=== PATIENT | female | born 1965 | race African-American/Black ===

== ENCOUNTER 2021-05-20 10:33 | Emergency (ER) | payer OTHER, SELFPAY ==
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
--- NOTE | ~2021-05-20 | XR_ITS ---
EXAMINATION: XR shoulder LT min 2V DATE: 05/20/2021 11:25 INDICATION: Left shoulder pain. TECHNIQUE: 4 views of left shoulder were obtained. COMPARISON: None. FINDINGS: Bone alignment is normal. No fracture. There is mild osteoarthritis of glenohumeral joint a nd acromioclavicular joint. IMPRESSION: 1. Mild polyarticular osteoarthritis. Reviewed, dictated and finalized at location A.
[2021-05-20 10:52] VITALS: BP 205/96; PULSE 77; RESP 16; TEMP 36.8; O2SAT 99
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
[2021-05-20 11:51] VITALS: BP 200/106
== END 2021-05-20 11:53 | disposition home or self-care (01) ==
PROVIDERS: Emergency Provider Nurse Practitioner
DX: M25.512 Pain in left shoulder (principal); S39.012A Strain of muscle, fascia and tendon of lower back, initial encounter; W20.8XXA Other cause of strike by thrown, projected or falling object, initial encounter; I10 Essential (primary) hypertension
CPT/HCPCS: 72100; 73030; 99214; G0463

== ENCOUNTER 2021-12-11 17:51 | Emergency (ER) | payer OTHER, SELFPAY ==
--- NOTE | ~2021-12-11 | XR_ITS ---
EXAM: XR ankle LT min 3V, XR foot LT min 3V DATE: 12/11/2021 18:35 HISTORY: pain . COMPARISON: None available. FINDINGS: Decreased mineralization. No fracture or dislocation. No lytic or blastic lesion. Moderate hallux valgus. Mild degenerative changes in the tibiotalar joint, midfoot joints, and first MTP. Os navicularis. Plantar and Achilles enthesopathy. No erosion or periosteal change. Soft tissues within normal limits. IMPRESSION: No acute osseous finding in the left foot or ankle.. Reviewed, dictated and finalized at location K. IMPRESSION: No acute osseous finding in the left foot or ankle..
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
[2021-12-11 17:58] VITALS: BP 162/122; PULSE 97; RESP 18; TEMP 36; O2SAT 100
--- NOTE | 2021-12-11 18:20 | ECG_ITS ---
Measurements Intervals [place] Rate: 76 P: 49 OK: 203 QRS: 9 QRSD: 93 T: 60 QT: 376 QTc: 424 Interpretive Statements SINUS RHYTHM BORDERLINE AV CONDUCTION DELAY BORDERLINE ECG Electronically Signed On 12-12-2021 7:50:08 CDT by Shaheed Moreno D.O.
[2021-12-11] MEDS: IBUPROFEN 600 MG TABLET PO (18:36)
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
[2021-12-11 19:56] VITALS: BP 180/105; PULSE 93; RESP 16; O2SAT 98
== END 2021-12-11 19:54 | disposition home or self-care (01) ==
PROVIDERS: Emergency Provider General Practice
DX: S93.402A Sprain of unspecified ligament of left ankle, initial encounter (principal); I10 Essential (primary) hypertension; E55.9 Vitamin D deficiency, unspecified; R94.31 Abnormal electrocardiogram [ECG] [EKG]; V43.52XA Car driver injured in collision with other type car in traffic accident, initial encounter
CPT/HCPCS: 71046; 73610; 73630; 93005; 99284; A9270

== ENCOUNTER 2022-02-03 12:00 | Emergency (ER) | payer OTHER, SELFPAY ==
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
[2022-02-03 12:01] VITALS: BP 161/101; PULSE 100; RESP 16; TEMP 36.5; O2SAT 100
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
[2022-02-03] MEDS: KETOROLAC (*BKC) 60 MG/2 ML VIAL IM (13:49)
[2022-02-03 15:20] VITALS: BP 170/105; PULSE 79; RESP 18; O2SAT 100
== END 2022-02-03 15:25 | disposition home or self-care (01) ==
PROVIDERS: Emergency Provider Emergency Medicine
DX: S16.1XXA Strain of muscle, fascia and tendon at neck level, initial encounter (principal); I10 Essential (primary) hypertension; E55.9 Vitamin D deficiency, unspecified; M47.812 Spondylosis without myelopathy or radiculopathy, cervical region; X58.XXXA Exposure to other specified factors, initial encounter
CPT/HCPCS: 72125; 96372; 99284; J1885

== ENCOUNTER 2022-03-26 12:07 | Emergency (ER) | payer OTHER, SELFPAY ==
--- NOTE | ~2022-03-26 | CT_ITS ---
EXAMINATION: CT abdomen pelvis w con DATE: 03/26/2022 13:18 INDICATION: Abdominal pain TECHNIQUE: Computed tomography (CT) of the abdomen and pelvis was performed with 100 mL Omnipaque-350 intravenous contrast. Automated exposure control and iterative reconstruction technique were employe d. The dose-length product was 740.11 mGy-cm. COMPARISON: None FINDINGS: Small calcified left lower lobe nodule consistent with old granulomatous disease. Heart size is steven l. No pericardial or pleural effusion. Small sliding-type hiatal hernia. Focal hepatic steatosis at t he ligamentum teres. Gallbladder, spleen and bilateral adrenal glands are normal. 1.5 cm unilocular c ystic lesion without evident solid component at the head of the pancreas. Bilateral subcentimeter kuldip al cysts. Small calcified appendicolith within the normal appendix with no periappendiceal in compari son to suggest acute appendicitis. Couple sigmoid diverticula without adjacent inflammatory change to suggest diverticulitis. No bowel obstruction. Bladder is normal. The uterus is not identified and ortiz s likely been surgically resected. No free intraperitoneal gas or fluid. No pathologically enlarged a bdominal or pelvic lymphadenopathy. Mild lumbar and lower thoracic spondylosis with severe facet oste oarthritis in the mid to lower lumbar spine. IMPRESSION: 1. No acute intra-abdominal/pelvic process. 2. Small sliding-type hiatal hernia. 3. 1.5 cm unilocular cystic lesion at the head of the pancreas without evident solid soft tissue comp onent. The differential diagnosis includes pseudocyst, intraductal papillary mucinous neoplasm (IPMN) , mucinous cystic neoplasm (MCN), and the less common serous cystadenoma and neuroendocrine tumor. Co rrelate for history of pancreatitis. Recommend one-year follow-up pre and postcontrast MRI. Reviewed, dictated and finalized at location A. IMPRESSION: 1. No acute intra-abdominal/pelvic process. 2. Small sliding-type hiatal hernia. 3. 1.5 cm unilocular cystic lesion at the head of the pancreas without evident solid soft tissue component. The differential diagnosis includes pseudocyst, in traductal papillary mucinous neoplasm (IPMN), mucinous cystic neoplasm (MCN), a nd the less common serous cystadenoma and neuroendocrine tumor. Correlate for h istory of pancreatitis. Recommend one-year follow-up pre and postcontrast MRI.
[2022-03-26 12:13] VITALS: BP 154/96; PULSE 104; RESP 18; TEMP 36.8; O2SAT 100
--- NOTE | 2022-03-26 12:18 | ED.ABDPAIN ---
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 She denies any aggravating or relieving factors. Also she denies any fever, chills, diarrhea, constipation, urinary symptoms. History of hysterectomy and hypertension. Patient reports a lot of stress lately, recently retired. She does not smoke or drink or uses drugs Related Data Home Medications Medication Instructions Recorded Confirmed losartan 50 mg tablet 50 mg PO DAILY 05/20/21 Allergies Allergy/AdvReac Type Severity Reaction Status Date / Time No Known Allergies Allergy Mild Verified 03/26/22 12:16 Review of Systems Review of Systems: All systems reviewed & are unremarkable except as noted in HPI and below PMFSH Past Medical History Medical History Hypertension Vitamin D deficiency Surgical History Surgical History No significant past surgical history Social History Social History Smoking status: Never smoker Gender identity (if verbalized by the patient): Female Exam Narrative: General appearance: Well-developed, well-nourished Skin: Normal color Head: Normocephalic, nontraumatic Eyes: Clear conjunctiva ENT: Oropharynx normal, ears normal, nose normal Neck: Supple, nontender Chest and respiratory: Airway patent, no respiratory distress, no accessory muscle use Heart: Regular rate/rhythm Abdomen: Soft, nontender, no organomegaly, quiet bowel sounds Vascular: Normal peripheral pulses, normal capillary refill. 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 Patient was notified that the CAT scan showed 1.5 cm cyst at the head of the pancreas, and we are not sure if this is benign or malignant. Patient was advised to follow-up with her family physician within 1 to 2 weeks for possible MRI within 1 year. A copy of the CAT scan report was given to the patient prior to discharge. Date: 03/26/22 Time: 14:33 Vital Signs Vital signs: Vital Signs Temperature 36.8 C 03/26/22 12:13 Pulse Rate 104 H 03/26/22 12:13 Respiratory Rate 18 03/26/22 12:13 Blood Pressure 154/96 H 03/26/22 12:13 Pulse Oximetry 100 03/26/22 12:13 Oxygen Delivery Room Air 03/26/22 12:13 Temperature 36.8 C 03/26/22 12:13 Pulse Rate 104 H 03/26/22 12:13 Respiratory Rate 18 03/26/22 12:13 Blood Pressure 154/96 H 03/26/22 12:13 Pulse Oximetry 100 03/26/22 12:13 Oxygen Delivery Room Air 03/26/22 12:13 MDM - Abdominal Pain Differential Diagnosis Differential diagnosis: Likely abdominal pain, acute appendicitis, constipation, diverticulitis, gastroenteritis and pancreatitis Lab Data Result diagrams: 03/26/22 12:34 03/26/22 12:34 Labs: Lab Results 03/26/22 03/26/22 03/26/22 Range/Units 12:34 12:34 12:35 WBC 8.9 (4.5-10.0) K/mm3 RBC 5.30 (4.2-5.4) M/mm3 Hgb 13.8 (12.0-15.0) g/dL Hct 43.0 (37.0-47.0) % MCV 81.1 (80-100) fl MCH 26.0 (26-34) pg MCHC 32.1 (32-36) g/dl RDW 15.4 H (11.5-14.5) % Plt Count
[2022-03-26] MEDS: SODIUM CHLORIDE 0.9% IV 1,000 ML 999 ML IV CONT (12:36)
[2022-03-26 12:45] LABS: Basophils Percent Auto 0.2 % (0.2-1.2); Eosinophils Absolute Auto 0.1 K/mm3 (0-0.3); Eosinophils Percent Auto 0.9 % (0-4.4); Hemoglobin 13.8 g/dL (12.0-15.0); Immature Granulocyte Absolute 0.04 K/mm3 (0.00-0.031); Immature Granulocyte Percent A 0.4 % (0-0.5); Lymphocytes Absolute Auto 1.98 K/mm3 (0.9-3.2); Lymphocytes Percent Auto 22.1 % (18.3-44.2); Mean Corpuscular HGB Conc 32.1 g/dl (32-36); Mean Corpuscular Volume 81.1 fl (80-100); Mean Platelet Volume 10.9 fl (7.4-10.4); Monocytes Absolute Auto 0.6 K/mm3 (0.1-0.6); Monocytes Percent Auto 6.9 % (2.6-8.5); Neutrophils Absolute Auto 6.2 K/mm3 (1.3-6.7); Neutrophils Percent Auto 69.5 % (45.5-73.1); Platelet Count Result 253 k/mm3 (150-375); Red Cell Distribution Width 15.4 % (11.5-14.5); White Blood Count 8.9 K/mm3 (4.5-10.0)
[2022-03-26 12:49] LABS: Appearance Urine Cloudy (Clear); Bilirubin Urine Negative (Negative); Color Urine Yellow (Yellow); Glucose Urine UA Negative (Negative); Ketones Urine Negative (Negative); Leukocyte Esterase Ur 1+ LEU/UL (Negative); Nitrate Urine Negative (Negative); Protein Urine 3+ mg/dL (Negative); Specific Grav Ur >= 1.030 (1.001-1.035); Urobilinogen Urine 0.2 mg/dL (<2.0); pH Urine 5.5 (5.0-9.0)
[2022-03-26 12:57] LABS: Alanine Aminotransferase 26 U/L (6-35); Albumin Level 4.6 g/dL (3.5-5.1); Alkaline Phosphatase 137 U/L (38-126); Anion Gap 9 mmol/L (8-16); Aspartate Amino Transferase 46 U/L (14-36); Bilirubin,Total 0.7 mg/dL (0.2-1.3); Blood Urea Nitrogen 16 mg/dL (7-17); Calcium 9.7 mg/dL (8.4-10.2); Carbon Dioxide 25 mmol/L (22-30); Chloride 105 mmol/L (98-107); Estimated CRCL calculation 65 ml/min; Estimated Glomerular Filt Rate > 60; Glucose 102 mg/dL (65-110); Lipase 105 U/L (23-300); Potassium 3.6 mmol/L (3.4-5.0); Sodium 139 mmol/L (137-145)
[2022-03-26 13:19] LABS: Add Urine Microscopic? YES; Blood Urine Trace-Intact (Negative)
[2022-03-26 13:20] LABS: Bacteria Urine 2+ /hpf; RBC Urine 0-2 /hpf (0-2); Squamous Epithelial Cell Urine Few /hpf (Few); WBC Urine >75 /hpf (0-3)
[2022-03-26 14:59] VITALS: BP 145/86; PULSE 88; RESP 20; O2SAT 98
== END 2022-03-26 15:05 | disposition home or self-care (01) ==
PROVIDERS: Emergency Provider Emergency Medicine
DX: N39.0 Urinary tract infection, site not specified (principal); K86.2 Cyst of pancreas; I10 Essential (primary) hypertension
CPT/HCPCS: 36415; 74177; 80053; 81001; 83690; 85025; 87086; 87088; 96361; 96365; 99284; J0696; J7030; Q9967